=== PATIENT | female | born 1950 | race Caucasian/White ===

== ENCOUNTER 2016-04-08 09:04 | Day surgery (SDC) | payer OTHER ==
[~2016-04-08] VITALS: Ht 165.1 cm; Wt 71.0 kg
[~2016-04-08 09:04] MED LIST: BENZ200C44 PO; CALC-72 PO; CETI10CA PO; ESCI10TA52 PO; FLUT9.9S NS; LACT1CAP73 PO; METF750T2 PO; MULT1CAP33 PO; Sodium Chloride LOK Flush 10 mL Syringe IV PRN; fentaNYL-PF 50 mCg/mL 2 mL Inj IVPUSH PRN
[2016-04-08 09:48] VITALS: BP 154/124; PULSE 66; RESP 16; O2SAT 96
[2016-04-08 09:50] VITALS: BP 148/80; PULSE 64; RESP 14; O2SAT 96
[2016-04-08] MEDS ORDERED: DIPH25CA6 PO (09:50)
[2016-04-08] MEDS: 0.9% Sodium Chloride 1,000 ML IV SCH ×2 (10:10→10:25)
[2016-04-08 10:38] VITALS: BP 131/72; PULSE 64; RESP 14; O2SAT 94
[2016-04-08 10:53] VITALS: BP 126/73; PULSE 69; RESP 14; O2SAT 93
[2016-04-08 11:00] VITALS: BP 152/79; PULSE 63; RESP 14; O2SAT 95
--- NOTE | 2016-04-08 12:58 | ENDO ---
[address] [address] ENDOSCOPY PROCEDURE PATIENT: EMILY JORDAN : 1950 MR#: [id number] ADMIT: 04/08/2016 JOB ID: [id number] PROCEDURE: Colonoscopy. INDICATION: Screening. Patient with a personal history of colon polyps. ANESTHESIA: Patient's ASA classification is two. Mallampati score is two. MEDICATIONS: 1. Versed 4 mg. 2. Fentanyl 100 mcg. INSTRUMENT USED: PCF H 180 AL. PREPARATION QUALITY: Good. PROCEDURE DETAILS: After informed consent was obtained the patient was brought into the GI suite, where she was placed on oxygen via nasal cannula and monitored with continuous pulse oximeter, telemetry, and blood pressure monitoring. A time-out was performed, then she was placed in the left lateral decubitus position and medications were administered for sedation. Digital rectal exam revealed a large hemorrhoid that was external. The colonoscope was then inserted into the rectum and advanced under direct visualization to the cecum, which was identified by the presence of the ileocecal valve and appendiceal orifice. Once the cecum was reached, the colonoscope was withdrawn back into the rectum as the mucosa and lumen were examined. In the rectum, retroflexion was performed. Following retroflexion, the remaining air in the rectum was suctioned and the procedure was completed. FINDINGS: 1. In the ascending colon, there was a 4 mm sessile polyp that was removed with a cold snare. 2. In the transverse colon, there was an approximately 5 mm sessile polyp that was removed with a cold snare. 3. The sigmoid colon, there was an approximately 8 mm sessile polyp that was removed with a hot snare. Following removal with a hot snare there was a significant mucosal defect which was approximated with the placement of one [place] [employer] clip successfully. 4. Scattered diverticula were seen throughout the sigmoid colon. IMPRESSION: 1. Ascending colon polyp. 2. Transverse colon polyp. 3. Sigmoid polyp. 4. Sigmoid diverticulosis. 5. Large external hemorrhoids. RECOMMENDATIONS: 1. Avoid NSAIDs and anticoagulants for 72 hours. 2. Repeat colonoscopy pending polyp pathology results. 3. Fiber-rich diet. 4. Surgical consultation if external hemorrhoid should become symptomatic. COMPLICATIONS: None. ESTIMATED BLOOD LOSS: Less than 5 mL.
--- NOTE | 2016-04-09 10:57 | PATH ---
SURGICAL PATHOLOGY Attending Physician:Azucena Sol CASE STATUS: Signed Out PATIENT NAME: EMILY JOHN PID: [id number] : 1950 DATE COLLECTED:04/08/2016 20:00 SPECIMEN: 1: Colon, Biopsy 2: Colon, Biopsy 3: Colon, Biopsy CLINICAL HISTORY: 1). ASCENDING COLON POLYP 2). TRANSVERSE COLON POLYP 3). SIGMOID COLON POLYP FINAL DIAGNOSIS: 1. Ascending Colon Polyp: Tubular adenoma involving multiple biopsy fragments. 2. Transverse Colon Polyp: Tubular adenoma involving two biopsy fragments. 3. Sigmoid Colon Polyp: Serrated adenoma, traditional type with minimal dysplasia. ICD10 D12.2 GROSS DESCRIPTION: The specimen is received in three formalin filled containers labeled with the patient's name. 1). The specimen is sublabeled "ascending colon polyp" and consists of multiple portions of tissue which aggregate to 0.5 x 0.5 x 0.2 CM. The specimen is entirely submitted in cassette 1A. 2). The specimen is sublabeled "transverse colon polyp" and consists of 3 portions of tissue which aggregate to 0.3 x 0.3 x 0.3 CM. The specimen is entirely submitted in cassette 2A. 3). The specimen is sublabeled "sigmoid colon polyp" and consists of a 0.7 x 0.6 x 0.5 CM portion of tissue. The specimen is trisected and totally submitted in cassette 3A. 04/08/2016 [facility] ICD-9 CODES: CPT CODES: 1: 89488 2: 36074 3: 93249 Electronically Signed Out Tin Cameron MD [facility] Pathology [facility] [address], [place] [address] Technical component performed at [facility], [facility] [address], [place], [address]
== END 2016-04-08 23:59 | disposition home or self-care (01) ==
LOC: END 09:04
PROVIDERS: ATTEND Internal Medicine Gastroenterology
DX: Z12.11 Encounter for screening for malignant neoplasm of colon (principal); Z86.010 Personal history of colon polyps; D12.2 Benign neoplasm of ascending colon; D12.3 Benign neoplasm of transverse colon; D12.5 Benign neoplasm of sigmoid colon; K57.30 Diverticulosis of large intestine without perforation or abscess without bleeding; K64.4 Residual hemorrhoidal skin tags; E11.9 Type 2 diabetes mellitus without complications; E78.5 Hyperlipidemia, unspecified; R03.0 Elevated blood-pressure reading, without diagnosis of hypertension; F32.9 Major depressive disorder, single episode, unspecified; F17.210 Nicotine dependence, cigarettes, uncomplicated; Z79.84 Long term (current) use of oral hypoglycemic drugs
CPT/HCPCS: 45385; 99153; G0500; J2250; J7030